=== PATIENT | male | born 1980 | race Caucasian/White ===

== ENCOUNTER 2016-09-08 17:02 | Emergency (ER) | payer OTHER ==
[2016-09-08] MEDS ORDERED: NS 500 ML IV ONE (17:30)
[2016-09-08] MEDS ORDERED: ASPIRIN 81 MG CHEWABLE TAB PO ONE (17:30)
--- NOTE | 2016-09-08 17:33 | EDPHY ---
H & P Stated Complaint: cp "i've been under stress lately" - Personal History Current Tetanus/Diphtheria Vaccine: Yes Current Tetanus Diphtheria and Acellular Pertussis (TDAP): Yes - Medical/Surgical History Hx Asthma: No Hx Chronic Respiratory Disease: No Hx Diabetes: No Hx Cardiac Disease: No Hx Renal Disease: No Hx Cirrhosis: No Hx Alcoholism: No Hx HIV/AIDS: No Hx Splenectomy or Spleen Trauma: No Other PMH: r index finger surgery/r foot surgery/hernia/tonsils - Social History Smoking Status: Never smoked Time Seen by Provider: 09/08/16 17:19 HPI/ROS: CHIEF COMPLAINT: Chest pain since 1:00 p.m. 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 today while he was working. He was not performing exertional activity when the chest pain started. Chest pain is intermittently reproducible with deep inspiration and with palpation to the area of his left nipple. No radiation of pain. No nausea or vomiting. No diaphoresis. No abdominal pain. No jaw pain. No arm pain. No neck pain. He notes that as part of his activities he is regularly on foot patrol, was recently yesterday and noted no chest pain or dyspnea with exertion, did not have to cease his activity secondary to chest pain or dyspnea. Patient does note that he has been under quite a bit of personal stress related to family issues recently. REVIEW OF SYSTEMS: A ten point review of systems was performed and is negative with the exception of the items mentioned in the HPI PAST MEDICAL & SURGICAL HISTORY: No history of coronary artery disease SOCIAL HISTORY: nonsmoker. No illicit drug use. No cocaine use. 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 FAMILY HISTORY: mother, father, sibling with no history of premature coronary artery disease. paternal grandfather with quintuple CABG age 85 PHYSICAL EXAM (Prior to examination, patient consented to physical exam, hands were washed and my usual and customary physical exam procedures followed) 1) GENERAL: Well-developed, well-nourished, alert and oriented. Appears anxious . 2) HEAD: Normocephalic, atraumatic 3) HEENT: Pupils equal, round, reactive to light bilaterally. Sclera anicteric. 4) NECK: Full range of motion, no bruit . 5) LUNGS: Clear auscultation bilaterally, no wheezes, no rhonchi, no retractions. 6) HEART: Regular rate and rhythm, no murmur, no heave, no gallop. 7) ABDOMEN: No guarding, no rebound, no focal tenderness, negative McBurney's, negative Valenzuela's, negative Rovsing's, negative peritoneal sign, 8) MUSCULOSKELETAL: Moving all extremities, no focal areas of tenderness, no obvious trauma. No peripheral edema or discoloration. Negative Homans no palpable cord 9) BACK: No CVA tenderness, no midline vertebral tenderness, no fluctuance, no step-off, no obvious trauma, no visual or palpable abnormality. 10) SKIN: No rash, no petechiae. 11) Psychiatric: Patient is oriented X 3, there is no agitation. DIFFERENTIAL DIAGNOSIS: In no particular order, including but not limited to myocardial ischemia, pulmonary embolus, chest wall pain, pleural inflammation and pulmonary infectious causes. (Alexander Ch) Constitutional: Initial Vital Signs Temperature (C) 36.6 C 09/08/16 17:05 Heart Rate 88 09/08/16 17:05 Respiratory Rate 14 09/08/16 17:05 Blood Pressure 135/85 H 09/08/16 17:05 O2 Sat (%) 98 09/08/16 17:05 O2 Delivery Mode Room Air Allergies/Adverse Reactions: acetaminophen [From Vicodin] Allergy (Verified 02/11/15 10:22) hydrocodone bitartrate [From Vicodin] Allergy (Verified 02/11/15 10:22) Home Medications: Medication Instructions Recorded oxyCODONE/APAP 5/325 [Percocet 1 - 2 tab PO Q4-6PRN PRN #15 tab 12/24/14 5/325] INVanz 02/11/15 Vancomycin 02/11/15 Medical Decision Making - Diagnostics EKG Interpretation: 12 lead EKG is interpreted in Trace master View by emergency department physician. 2nd EKG was also interpreted by me and trace master. Both of them shows sinus rhythm without acute ischemic changes. There is no change between the two. ( Melody Gandara) ED Course/Re-evaluation: 7:10 p.m.: Re-evaluation. Discussed case Dr. Melody Gandara in the ER. Plan will be repeat troponin and EKG. If These are negative plan will be discharge. (Alexander Ch) Other Provider: I have evaluated and participated in the management of this patient. My co- signature indicates that I have reviewed this chart and that I agree with the findings and the plan of care as documented. My personal history and physical findings include: Left chest pain confined to a well-defined area. Pain is somewhat worsened with movement. It is not pleuritic. He does not feel short of breath. Does not radiate. I have reviewed the laboratory findings, chest x- ray, and EKGs. On exam he is awake and alert, in no distress. Heart has a regular rate and rhythm without murmur, rub, or gallop. Lungs are clear to auscultation. Abdomen is soft and nontender. Extremities are without swelling or edema. He is low risk. RALPH score is 0. I agree with discharge home to follow up with his primary care physician. (Melody Gandara) - Data Points Laboratory Results: Laboratory Results 09/08/16 17:30 09/08/16 17:30 Medications Given: Discontinued Medications Aspirin (Aspirin) 324 mg PO EDNOW ONE Stop: 09/08/16 17:31 Last Admin: 09/08/16 17:40 Dose: 324 mg Sodium Chloride (Ns) 500 mls @ 0 mls/hr IV ONCE ONE PRN Reason: As Directed Stop: 09/08/16 17:31 Last Admin: 09/08/16 17:43 Dose: 500 mls Departure - Departure Disposition: Home, Routine, Self-Care Clinical Impression: Chest pain Condition: Good Instructions: Chest Pain (ED) Additional Instructions: Seek medical attention if you develop new or worsening chest pain, if you develop new or worsening shortness of breath, or any other symptoms that concern you. Referrals: Marina Vera MD [Primary Care Provider] - 1-2 days without fail
--- NOTE | 2016-09-08 17:39 | CPEKG ---
Heart Rate: 77 RR Interval: 779 P-R Interval: 144 QRSD Interval: 86 QT Interval: 356 QTC Interval: 403 P [place]: 7 QRS [place]: 2 T Wave [place]: 32 EKG Severity - NORMAL ECG - EKG Impression: SINUS RHYTHM Electronically Signed By: Melody Gandara 08-Sep-2016 19:34:04
[2016-09-08 17:42] LABS: % IMMATURE GRANULYOCYTES 0.2 % (0.0-1.1); ABSOLUTE IMMATURE GRANULOCYTES 0.02 10^3/uL (0.00-0.10); ADD DIFF? NO; ADD MORPH? NO; ADD SCAN? NO; ATYPICAL LYMPHOCYTE FLAG 0 (0-99); FRAGMENT RBC FLAG 0 (0-99); HEMATOCRIT 45.3 % (40.0-51.0); HEMOGLOBIN 15.6 g/dL (13.7-17.5); LEFT SHIFT FLG 0 (0-99); LIPEMIA HEMOLYSIS FLAG 90 (0-99); MEAN CELL HEMOGLOBIN 29.9 pg (27.9-34.1); MEAN CELL HEMOGLOBIN CONCENTR. 34.4 g/dL (32.4-36.7); MEAN CELL VOLUME 86.8 fL (81.5-99.8); PLATELET CLUMPS FLAG 10 (0-99); PLATELET COUNT 319 10^3/uL (150-400); RED BLOOD CELL COUNT 5.22 10^6/uL (4.40-6.38); RED CELL DISTRIBUTION WIDTH 12.4 % (11.5-15.2)
--- NOTE | 2016-09-08 17:55 | DX ---
PA and Lateral Chest History: Chest pain. Comparison to the prior study February 11, 2015. Findings: The heart and mediastinum are normal. Pulmonary vascularity is normal. The lungs are clear. There is no pleural fluid. A pneumothorax is not identified. Since the prior study, the right PICC h as been removed with no other significant change identified. Impression: Stable chest negative for acute abnormality. Specifically, a source for chest pain is not identified.
[2016-09-08 17:59] LABS: ANION GAP 12 mEq/L (8-16); CALCIUM 9.3 mg/dL (8.5-10.4); CARBON DIOXIDE 26 mEq/l (22-31); CHLORIDE 103 mEq/L (97-110); GLOMERULAR FILTRATION RATE > 60; GLUCOSE 84 mg/dL (70-100); POTASSIUM 4.3 mEq/L (3.5-5.2); SODIUM 141 mEq/L (134-144)
[2016-09-08 18:10] LABS: TROPONIN I < 0.012 ng/mL (0-0.034)
[2016-09-08 19:24] VITALS: O2SAT 96
--- NOTE | 2016-09-08 19:26 | CPEKG ---
Heart Rate: 65 RR Interval: 923 P-R Interval: 148 QRSD Interval: 86 QT Interval: 380 QTC Interval: 396 P [place]: 40 QRS [place]: 51 T Wave [place]: 22 EKG Severity - NORMAL ECG - EKG Impression: SINUS RHYTHM Electronically Signed By: Melody Gandara 08-Sep-2016 19:33:57
[2016-09-08 21:07] VITALS: BP 122/80; PULSE 65; RESP 14; TEMP 97.9
== END 2016-09-08 21:01 | disposition home or self-care (01) ==
DX: R07.9 Chest pain, unspecified (principal)

== ENCOUNTER → 2016-10-02 | Outpatient (CLI) | payer OTHER ==
--- NOTE | 2016-10-02 17:59 | DX ---
AP standing lower extremities. Reason for examination: History of scoliosis and back pain in a 35-year-old male. Calculate leg-lengt h; evaluate for discrepancy. Findings: The lower extremities are measured from the top of the femoral heads to the talar domes. Th e right leg measures 87.4 cm and the left leg measures 88.4cm. There is a pelvic tilt with the left iliac crest projecting higher than the right. Impression: Leg length discrepancy of 1 cm with the left leg measuring longer than the right..
== END ==
LOC: FIMAGING 09:47
PROVIDERS: ATTEND Internal Medicine
DX: M21.752 Unequal limb length (acquired), left femur (principal)

== ENCOUNTER → 2017-11-30 | Outpatient (CLI) | payer OTHER | LOC: BMCIMAGING 13:44 | PROVIDERS: ATTEND Family Medicine | DX: Z03.89 Encounter for observation for other suspected diseases and conditions ruled out (principal) ==

== ENCOUNTER → 2018-10-06 | Outpatient (CLI) | payer OTHER | LOC: FIMAGING 15:10 | PROVIDERS: ATTEND Family Medicine | DX: J98.4 Other disorders of lung (principal) ==